=== PATIENT | female | born 1945 | race Caucasian/White ===

== ENCOUNTER 2016-11-29 23:36 | Emergency (ER) | payer MEDICARE, OTHER ==
[~2016-11-29 23:36] MED LIST: ADULT LOW DOSE81 MG PO; CALCIUM 600+D1 EAC2 PO; CENTRUM COMPLE1 EACH PO; EQL FISH OIL 1,1 CA1 PO; LEVOTHYROXINE150 MCG PO; LIPITOR10 MG PO; METOPROLOL TART25 MG PO
== END 2016-11-30 00:42 ==
LOC: EDMED 23:36
PROC: 2Y41X5Z Packing of Nasal Region using Packing Material (ICD-10-PCS; principal; 2016-11-29)
DX: R04.0 Epistaxis (principal)